=== PATIENT | female | born 1995 | race Caucasian/White ===

== ENCOUNTER 2022-09-16 08:38 | Outpatient (REF) | payer OTHER, SELFPAY ==
[2022-09-16 11:14] LABS: MANUAL DIFF FLAG NO
[2022-09-16 11:25] LABS: Basophils Absolute Auto 0.1 X10*3/uL (0.0-0.2); Basophils Percent Auto 0.6 % (0-2); Eosinophils Absolute Auto 0.1 X10*3/uL (0.0-0.4); Eosinophils Percent Auto 1.2 % (0-4); Hematocrit 40.3 % (37.0-47.0); Hemoglobin 12.9 g/dl (12.0-16.0); Imm Gran Abs Auto 0.02 X10*3/uL (0.00-0.03); Imm Gran Pct Auto 0.3 % (0.0-0.4); Lymphocytes Absolute Auto 3.1 X10*3/uL (1.2-4.9); Lymphocytes Percent Auto 40.1 % (20-40); Mean Corpuscular Hemoglobin 25.8 pg (27.0-33.0); Mean Corpuscular Volume 80.6 fL (80.0-98.0); Mean Platelet Volume 12.1 fL (9.4-12.3); Monocytes Absolute Auto 0.5 X10*3/uL (0.1-1.2); Monocytes Percent Auto 6.7 % (2-11); Neutrophils Percent Auto 51.1 % (45-73); Platelet Count 375 X10*3/uL (160-400); Red Cell Distribution Width 14.1 % (11.0-16.0); White Blood Count 7.8 X10*3/uL (4.8-10.8)
[2022-09-16 12:08] LABS: Alanine Aminotransferase 26 U/L (0-31); Albumin Level 4.1 g/dL (3.5-5.0); Alkaline Phosphatase 83 U/L (39-117); Anion Gap 12 (12-20); Aspartate Amino Transferase 21 U/L (5-31); Bilirubin Total 0.8 mg/dL (0.0-1.0); Blood Urea Nitrogen 15 mg/dL (9-16); Calcium 9.4 mg/dL (8.4-10.2); Carbon Dioxide 25 mmol/L (22-29); Chloride 107 mmol/L (96-108); Cholesterol 174 mg/dL; Estimated Glomerular Filt Rate > 60; Glucose Fasting 84 mg/dL (60-99); HDL Cholesterol 36 mg/dL; LDL Cholesterol Calculated 120 mg/dl; Potassium 4.2 mmol/L (3.3-5.1); Sodium 140 mmol/L (135-145); TSH reflex Free T4 2.33 uIU/mL (0.32-4.0); Total Protein 7.1 g/dL (6.5-8.0); Triglycerides 92 mg/dL
[2022-09-17 05:43] LABS: Syphilis Screen Nonreactive (Nonreactive)
[2022-09-17 06:49] LABS: HBS Num1 0.33 mIU/mL (0-7.99); HBc Num1 0.17 S/CO (0.00-0.79); HBsAGNum1 0.33 S/CO (0.00-0.99); HIV AB/AG Nonreactive (Nonreactive); HIV Num 1 0.07 S/CO (0.00-0.99); Hepatitis B Core Antibody Nonreactive (Nonreactive); Hepatitis B Surface Antigen Negative (Negative); ~HepC Num1 0.08 S/CO (0.00-0.79); ~Hepatitis B Surface Antibody NONREACTIVE (Nonreactive); ~Hepatitis C Antibody Nonreactive (Nonreactive)
== END 2022-09-16 08:39 | disposition home or self-care (01) ==
LOC: HO.WFDLDS 08:38
PROVIDERS: Visit Provider Family Medicine
DX: Z00.00 Encounter for general adult medical examination without abnormal findings (principal); Z11.4 Encounter for screening for human immunodeficiency virus [HIV]; Z20.2 Contact with and (suspected) exposure to infections with a predominantly sexual mode of transmission
CPT/HCPCS: 36415; 80053; 80061; 84443; 85025; 86704; 86706; 86780; 86803; 87340; 87389

== ENCOUNTER 2022-12-07 10:31 | Outpatient (REF) | payer OTHER, SELFPAY ==
[2022-12-08 09:06] LABS: CT PCR NOT DETECTED (Not Detect.); NG PCR NOT DETECTED (Not Detect.)
[2022-12-08 10:10] LABS: BV Int Neg Control Negative (Negative)
[2022-12-08 10:11] LABS: BV Int Pos Control Positive (Positive)
== END 2022-12-07 10:32 | disposition home or self-care (01) ==
LOC: HO.LNP 10:31
PROVIDERS: PCP Family Medicine; Visit Provider Advanced Practice Midwife
DX: Z01.419 Encounter for gynecological examination (general) (routine) without abnormal findings (principal); Z20.2 Contact with and (suspected) exposure to infections with a predominantly sexual mode of transmission
CPT/HCPCS: 0353U; 87480; 87510; 87660; 88142

== ENCOUNTER 2023-03-04 10:17 | Outpatient (AMB) | payer OTHER, SELFPAY ==
--- NOTE | 2023-03-04 10:23 | MHC.OFFVIS ---
Intake Vital Signs 03/04/23 10:28 Height 5 ft 5 in Weight 212 lb BMI 35.3 BP 120/60 Intake Visit Reasons: 3 month follow up BC/DO NO RS Dedicated Driver Required: No Information Interpreted: non-clinical & clinical Design Drafter Chief: Design Drafter Chief Present (Aidyn) Allergies No Known Allergies Allergy (Verified 03/04/23 10:25) Medication List - Last Reconciled 03/04/23 by Stacey Mackey CNM cetirizine (Zyrtec) 10 mg PO DAILY PRN cholecalciferol (vitamin D3) 25 mcg PO DAILY desog-e.estradiol/e.estradiol 0.15-0.02 mgx21 /0.01 mg x 5 1 tab PO DAILY omega 7-inv-dlp-fish oil 60-90-500 mg (Fish Oil) 1 cap PO DAILY Is last menstrual period known: Yes Last menstrual period: 02/21/23 Post menopausal: No Patient : No HPI 3 month follow up BC/DO NO RS HPI Details Patient is here to follow-up on her control pills she really likes them the 1st month she noticed emotional changes and she was sort of all over the place but she feels like everything sort of leveled out her periods are still about 5 days with the 1st 2 being heavy so they have not changed much but she overall really likes the pill and is doing well on it. She wants to continue on it. 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 Her health is good and she has not having any other health issues. [facility] Social History Patient Tobacco Use Status: Former Tobacco user (social) Female Reproductive History Menstrual Age of Menarche: 13 Duration of menses: 3-5 days Date of last menstrual period: 02/21/23 control method: pills Total pregnancies: 0 Number of Living Children: 0 Physical Exam Vital Signs: Last Vital Signs BP 120/60 03/04/23 10:28 BMI result Body Mass Index 35.3 Assessment & Plan Assessment & Plan (1) control counseling: Code(s): Z30.09 - Encounter for other general counseling and advice on contraception (2) Screening for malignant neoplasm of cervix: Comment: 12/07/2022 Pap = negative. Code(s): Z12.4 - Encounter for screening for malignant neoplasm of cervix (3) Counseling for control, oral contraceptives: Code(s): Z30. - Encounter for other general counseling and advice on contraception Plan Reviewed her use of the control pills and their effects on her cycles and overall she is fairly happy with the pills. Reviewed things to watch for in terms of dangerous or negative side effects and what would need medical attention. Also discussed overall health and exercise and making sure she moves throughout the day and avoids prolonged sitting, to prevent blood stasis. Refill sent for 1 year supply 3 months at a time and we can see her next year for her annual. Medications: Refilled desog-e.estradiol/e.estradiol 0.15-0.02 mgx21 /0.01 mg x 5 1 tab PO DAILY 84 tabs 4RF Coding Level of Care Code Est Pt Level 3 (03509) Diagnoses control counseling Z Screening for malignant neoplasm of cervix Z12.4 Counseling for control, oral contraceptives Z
[2023-03-04 10:28] VITALS: BP 120/60; BMI 35.3
== END 2023-03-04 10:46 | disposition home or self-care (01) ==
LOC: HO.HWS 10:17
PROVIDERS: PCP Family Medicine; Visit Provider Advanced Practice Midwife
DX: Z30.09 Encounter for other general counseling and advice on contraception (principal)
CPT/HCPCS: 99213

== ENCOUNTER → 2023-03-04 10:17 | Outpatient (BNVA) | payer OTHER, SELFPAY | PROVIDERS: PCP Family Medicine; Visit Provider Advanced Practice Midwife | DX: Z30.09 Encounter for other general counseling and advice on contraception (principal) | CPT/HCPCS: 99212 ==

== ENCOUNTER 2023-07-29 08:22 | Outpatient (AMB) | payer OTHER, SELFPAY ==
--- NOTE | 2023-07-29 08:25 | MHC.PC.OV ---
Vital Signs 07/29/23 08:31 Height 5 ft 5 in Weight 210 lb 6 oz BMI 35.0 BP 102/66 Blood Pressure Location Rt brachial Position Sitting Respiration 13 Pulse 106 H Pulse Source Pulse Oximeter Pulse Oximetry (%) 98 Oxygen Delivery Method Room Air Intake Visit Reasons: Hemmoroid issues Intake Note: patient presents with rectal bleeding when using the bathroom. Patient reports she notices blood in the toilet and on the toilet paper. Patient noticed this on Tuesday along with constipation noticed at the same time. Patient reports she was seen in urgent care on Tuesday and was given a treatment plan and suppositories. Data Control Assistant Required: No Accompanied by: Self / Same As Patient Allergies No Known Allergies Allergy (Verified 07/29/23 08:34) Tobacco use date assessed: 07/29/23 HPI Hemmoroid issues HPI Details 27 y/o female presents with complaints of rectal bleeding along with constipation. She reports bright red blood in the bowl and on the toilet paper. Pt reports she noticed this along with constipation Tuesday. Pt reports significant bleeding in bowl. She denies any pain. She does note she has had hemorrhoids before. Last menstrual period 2 weeks ago per pt. [facility] Social History Housing: House Patient Tobacco Use Status: Former Tobacco user (social) e-Cigarette/Vaping Use: Never Used service: No Current occupational status: employed Current occupational exposures/hazards: Yes Cognitive needs: No Hearing needs: No Vision needs: No Female Reproductive History Menstrual Age of Menarche: 13 Questionnaire Thrive Questionnaire Date Thrive assessed: 08/10/22 SAMUEL-7 AMB Questionnaire SAMUEL-7 Date SAMUEL - 7 assessed: 08/10/22 Source: Developed by Drs. Jules Galvin, Sabi Storm, Lamont Flores and colleagues, with an educational ger from [email or web address]. Review of Systems Const Denies chills, Denies fatigue, Denies fever(s), Denies headache(s) and Denies weakness ENT Denies dizziness and Denies headache(s) Card Denies dyspnea Resp Denies cough, Denies dyspnea, Denies wheezing and Denies other (shortness of breath) Musc Denies numbness and Denies tingling Neuro Denies dizziness, Denies headache(s), Denies numbness, Denies tingling and Denies weakness Psych Denies anxiety and Denies depression Endo Denies fatigue Aller/Immun Denies wheezing Physical exam (Primary Care) Vital Signs: Last Vital Signs Pulse 106 H 07/29/23 08:31 Resp 13 07/29/23 08:31 BP 102/66 07/29/23 08:31 Pulse Ox 98 07/29/23 08:31 Oxygen Delivery Method Room Air 07/29/23 08:31 BMI result Body Mass Index 35.0 Tobacco/Smoking Status: Tobacco use Status Tobacco use date assessed 07/29/23 07/29/23 08:35 Patient Tobacco Use Status Former Tobacco user (social) 07/29/23 08:35 e-Cigarette/Vaping Use Never Used 07/29/23 08:35 Thrive Assessment: Date of Thrive Assessment Date Thrive assessed 08/10/22 07/29/23 08:35 Const General: well developed; No acute distress Nutritional Appearance: well nourished Orientation/consciousness: patient oriented x3 HENMT Head: Yes normocephalic and Yes atraumatic Eyes General: appearance normal, both eyes and all related structures Pupils: Equal, round and reactive pupils present EOM: EOMs intact bilaterally Resp Effort & Inspection: normal respiratory effort Auscultation: clear to auscultation bilaterally Cardio Rate: regular rate Rhythm: regular rhythm Heart sounds: S1 normal heart sound present, S2 normal heart sound present, no gallops, no murmurs and no rubs GI Inspection: Yes obesity Neuro General: patient oriented x3 and gait normal Cranial nerves: Yes Equal, round and reactive pupils present Psych Affect: normal affect Assessment and Plan Assessment & Plan (1) Rectal bleeding: Code(s): K62.5 - Hemorrhage of anus and rectum Plan: Rectal?bleeding?and?history?of?internal?hemorrhoids. Encouraged?increased?hydration Will?give?her?a?stool?softener She?can?use?a?steroid?rectal?cream Keep?stools?soft She?had?significant?bleeding?in?bowl;?check?CBC Referred?to?surgery?at?patient?request.??She?can?cancel?this?if?hemorrhoids?resolve (2) Constipation: Code(s): K59.00 - Constipation, unspecified Plan: As?above,?keep?stools?soft Orders: Orders Complete Blood Count Auto Diff Today K62.5 - Hemorrhage of anus and rectum, Z00.00 - Encounter for general adult medical examination without abnormal findings Basic Metabolic Panel Today K62.5 - Hemorrhage of anus and rectum, Z00.00 - Encounter for general adult medical examination without abnormal findings Referrals General Surgery Referral K62.5 - Hemorrhage of anus and rectum, K64.9 - Unspecified hemorrhoids Medications: New lidocaine HCl-hydrocortison ac 3-0.5 % 1 appl [place] BID 4 days 1 ea 0RF docusate sodium 100 mg PO BID 10 days 20 caps 1RF Coding Level of Care Code Est Pt Level 3 (86813) Diagnoses Rectal bleeding K62.5 Constipation K59.00
[2023-07-29 08:31] VITALS: BP 102/66; PULSE 106; RESP 13; O2SAT 98; BMI 35.0
== END 2023-07-29 09:03 | disposition home or self-care (01) ==
PROVIDERS: PCP Family Medicine; Visit Provider Family Medicine
DX: K62.5 Hemorrhage of anus and rectum (principal); K59.00 Constipation, unspecified
CPT/HCPCS: 99213

== ENCOUNTER 2023-07-29 09:13 | Outpatient (REF) | payer OTHER, SELFPAY | END 2023-07-29 09:14 | disposition home or self-care (01) | LOC: HO.WFDLDS 09:13 | PROVIDERS: Visit Provider Family Medicine | DX: Z00.00 Encounter for general adult medical examination without abnormal findings (principal); K62.5 Hemorrhage of anus and rectum | CPT/HCPCS: 36415; 80048; 85025 ==

== ENCOUNTER 2023-08-04 08:50 | Outpatient (AMB) | payer OTHER, SELFPAY ==
--- NOTE | 2023-08-04 08:57 | A.OFFVIS_ITS ---
Intake Vital Signs 08/04/23 08:59 Height 5 ft 5 in Weight 215 lb BMI 35.8 BP 132/60 Blood Pressure Location Rt brachial Position Sitting Pulse 80 Intake Visit Reasons: bleeding hemorrhoids Intake Note: This patient presents for an assessment for hemorrhoids. Patient c/o; reports occasional rectal bleeding, straining with bowel movements reports occasional constipation but Docusate effective. Fast Food Crew Lead Required: No Swatch Paster: Swatch Paster Present (Melody-Moustapha) Accompanied by: Self / Same As Patient Allergies No Known Allergies Allergy (Verified 08/04/23 09:03) Medication List - Last Reconciled 08/04/23 by Francis Rosario MD cholecalciferol (vitamin D3) 25 mcg PO DAILY desog-e.estradiol/e.estradiol 0.15-0.02 mgx21 /0.01 mg x 5 1 tab PO DAILY docusate sodium 100 mg PO BID 10 days lidocaine HCl-hydrocortison ac 3-0.5 % 1 appl [place] BID 4 days omega 8-knn-npi-fish oil 60-90-500 mg (Fish Oil) 1 cap PO DAILY HPI bleeding hemorrhoids HPI Details 27-year-old female referred for bleeding hemorrhoids. She says that she straining in the bathroom because of constipation about almost 2 weeks ago. She eventually had bowel movements and started to see some blood on the toilet bowl She says she had been constipated for a while. She says that for the past 4 days, she feels that her constipation has improved significantly and has softer stools. However, she says she notices small amounts of blood on wiping so she wanted to be seen. She denies any pain with bowel movements. She denies any swelling. She has never been before and has never had any anal surgery. [facility] Medical History Bleeding hemorrhoids Surgical History History of wisdom tooth extraction Social History Housing: House Patient Tobacco Use Status: Former Tobacco user (social) e-Cigarette/Vaping Use: Never Used service: No Current occupational status: employed Current occupational exposures/hazards: Yes Cognitive needs: No Hearing needs: No Vision needs: No Female Reproductive History Menstrual Age of Menarche: 13 Review of Systems Const Denies chills and Denies fever(s) Card Denies chest pain, Denies dyspnea and Denies dyspnea on exertion Resp Denies cough, Denies dyspnea and Denies dyspnea on exertion GI Reports hematochezia, Denies change in bowel habits and Reports constipation Denies hematuria Musc Denies back pain and Denies limited range of motion Neuro Denies focal weakness and Denies convulsions Psych Denies depression and Denies mood swings Physical Exam Const General: comfortable and no acute distress Orientation/consciousness: patient oriented x3 Neck Neck: Yes no lymphadenopathy Resp Auscultation: clear to auscultation bilaterally Cardio Rhythm: regular rhythm GI Other: Rectal exam shows small external hemorrhoids without thrombosis or any bleeding Palpation (GI): Soft to palpation, nontender and no guarding Neuro General: patient oriented x3 Office Procedures Anoscopy She was placed in santana-knife position. The anoscope was gently inserted. A full examination of the entire anal canal was done. She had small internal hemorrhoids. There was no bleeding or any lesions. There was no induration on digital exam. She had good sphincter tone. She had very small external hemorrhoids as well. [id number] Assessment & Plan Assessment & Plan (1) Bleeding hemorrhoids: Code(s): K64.9 - Unspecified hemorrhoids Plan: She describes passage of bright blood per rectum on wiping after bowel movements. Examination does show small internal and external hemorrhoids. Her bleeding is likely outlet in origin from her hemorrhoids. However, I told her that she has small hemorrhoids and not recommend any surgical intervention at this time. However, it appears that these hemorrhoids or bleeding because of her constipation. I am going to prescribe her a prescription for Metamucil as w ell as on Colace I told her that if she continues to have significant bleeding, she is welcome to follow up with me in the office. She is comfortable with the plan. Coding Level of Care Code New Pt Level 3 (76252) Diagnoses Bleeding hemorrhoids K64.9 CPT Codes Details - CPT: 59562-[id number] ([id number])
[2023-08-04 08:59] VITALS: BP 132/60; PULSE 80; BMI 35.8
== END 2023-08-04 09:25 | disposition home or self-care (01) ==
PROVIDERS: PCP Family Medicine; Referring Provider Family Medicine; Visit Provider Surgery
DX: K64.9 Unspecified hemorrhoids (principal)
CPT/HCPCS: 46600; 99203

== ENCOUNTER → 2023-08-04 08:50 | Outpatient (BNVA) | payer OTHER, SELFPAY | PROVIDERS: PCP Family Medicine; Visit Provider Surgery | DX: K64.9 Unspecified hemorrhoids (principal) | CPT/HCPCS: 46600; 99202 ==

== ENCOUNTER 2023-08-18 08:37 | Outpatient (AMB) | payer OTHER, SELFPAY ==
--- NOTE | 2023-08-18 08:15 | MHC.PC.OV ---
Vital Signs 08/18/23 08:45 Height 5 ft 5 in Weight 216 lb 2 oz BMI 36.0 BP 110/68 Blood Pressure Location Rt brachial Position Sitting Pulse 64 Pulse Source Pulse Oximeter Pulse Oximetry (%) 98 Oxygen Delivery Method Room Air Intake Visit Reasons: Therapist referral and mental health concerns Intake Note: Patient is here for therapist referral and mental health concerns. Allergies No Known Allergies Allergy (Verified 08/18/23 08:49) Medication List - Last Reconciled 08/18/23 by Palmer Yan MD cholecalciferol (vitamin D3) 25 mcg PO DAILY desog-e.estradiol/e.estradiol 0.15-0.02 mgx21 /0.01 mg x 5 1 tab PO DAILY docusate sodium 100 mg PO BID 10 days lidocaine HCl-hydrocortison ac 3-0.5 % 1 appl [place] BID 4 days omega 3-qke-lwt-fish oil 60-90-500 mg (Fish Oil) 1 cap PO DAILY Tobacco use date assessed: 08/18/23 Dental Screening Dental Screen Date: 08/18/23 Did you have a dental visit in the last 12 months?: Yes Did you have a dental problem in the last 6 months where you did not have access to dental care?: No Was dental information given to patient?: Patient has dentist HPI Therapist referral and mental health concerns HPI Details Patient?notes?anxiety?and?depression?with?increased?stressors. Denies?SI/HI She?says?she?has?had?a?therapist?in?the?distant?past?which?was?helpful. Has?never?tried?medication PFSH Medical History Bleeding hemorrhoids Surgical History History of wisdom tooth extraction Social History Housing: House Patient Tobacco Use Status: Former Tobacco user (social) e-Cigarette/Vaping Use: Never Used service: No Current occupational status: employed Current occupational exposures/hazards: Yes Cognitive needs: No Hearing needs: No Vision needs: No Female Reproductive History Menstrual Age of Menarche: 13 Questionnaire PHQ-9 Over the last 2 weeks, how often have you been bothered by any of the following problems? 1. Little interest or pleasure in doing things: several days 2. Feeling down, depressed, or hopeless: not at all 3. Trouble falling or staying asleep, or sleeping too much: several days 4. Feeling tired or having little energy: not at all 5. Poor appetite or overeating: several days 6. Feeling bad about yourself - or that you are a failure or have let yourself or your family down: several days 7. Trouble concentrating on things, such as reading the newspaper or watching television: nearly every day 8. Moving or speaking so slowly that other people could have noticed. Or the opposite - being so fidgety or restless that you have been moving around a lot more than usual: not at all 9. Thoughts that you would be better off or of hurting yourself in some way: not at all Total score: 7 Depression Screening Interpretation: Positive (Referred?for?therapy) Depression Screening Done: Yes 30185 - PHQ-9 Billing: Yes Source: Developed by Drs. Jules Galvin, Sabi Storm, Lamont Flores and colleagues, with an educational ger from [employer]. Thrive Questionnaire Date Thrive assessed: 08/18/23 I am a: Patient What is your living situation today?: I have a steady place to live Within the past 12 months, did the food you bought not last and you didn't have the money to get more?: Never true Within the past 12 months, did you worry whether your food would run out before you got money to buy more?: Never true Do you have trouble paying for medicines?: No Do you have trouble getting transportation to medical appointments?: No Do you have trouble paying your heating and electricity bill?: No Do you have trouble taking care of your child, family member or friend?: No Do you have trouble with day-to-day activities such as bathing, preparing meals, shopping, managing finances, etc.?: No Are you currently unemployed and looking for a job?: No Are you interested in more education?: No THRIVE Score: 0 AUDIT C Alcohol Use Questionnaire (AUDIT-C) 1. How often do you have a drink containing alcohol?: 2-3 times a week (once a week) 2. How many drinks containing alcohol do you have on a typical day when you are drinking?: 1 or 2 3. How often do you have six or more drinks on one occasion?: Never Total Score: 3 SAMUEL-7 AMB Questionnaire SAMUEL-7 Date SAMUEL - 7 assessed: 08/18/23 Feeling nervous, anxious, or on edge: 1 = Several days Not being able to stop or control worryin = Several days Worrying too much about different things: 1 = Several days Trouble relaxin = Several days Being so restless that it is hard to sit still: 0 = Not at all Becoming easily annoyed or irritable: 1 = Several days Feeling afraid as if something awful might happen: 1 = Several days Total SAMUEL-7 score (0-4 normal; 5-9 mild; 10-14 moderate; 15-21 severe): 6 Source: Developed by Drs. Jules Galvin, Sabi Storm, Lamont Flores and colleagues, with an educational ger from [employer]. SAMUEL-7 Assessment Billing SAMUEL-7 Assessment Tool: SAMUEL-7 Assessment 53902 Review of Systems Const Denies chills, Denies fatigue, Denies fever(s), Denies headache(s) and Denies weakness ENT Denies dizziness and Denies headache(s) Card Denies chest pain, Denies lightheadedness, Denies dyspnea and Denies other (Palpitations) Resp Denies cough, Denies dyspnea, Denies wheezing and Denies other ( shortness of breath) Musc Denies numbness and Denies tingling Neuro Denies dizziness, Denies headache(s), Denies numbness, Denies tingling, Denies paresthesias and Denies weakness Psych Reports anxiety and Reports depression (Mild) Endo Denies fatigue Aller/Immun Denies wheezing Physical exam (Primary Care) Vital Signs: Last Vital Signs Pulse 64 08/18/23 08:45 BP 110/68 08/18/23 08:45 Pulse Ox 98 08/18/23 08:45 Oxygen Delivery Method Room Air 08/18/23 08:45 BMI result Body Mass Index 36.0 Tobacco/Smoking Status: Tobacco use Status Tobacco use date assessed 08/18/23 08/18/23 08:56 Patient Tobacco Use Status Former Tobacco user (social) 08/18/23 08:16 e-Cigarette/Vaping Use Never Used 08/18/23 08:16 PHQ-9: PHQ-9 Score PHQ-9: Total score 7 08/18/23 08:56 Depression Screening Interpretation: Positive (Referred?for?therapy) Thrive Assessment: Date of Thrive Assessment Date Thrive assessed 08/18/23 08/18/23 08:56 Const General: no acute distress and well developed Nutritional Appearance: well nourished Orientation/consciousness: patient oriented x3 HENMT Head: Yes normocephalic and Yes atraumatic Eyes General: appearance normal, both eyes and all related structures Pupils: Equal, round and reactive pupils present EOM: EOMs intact bilaterally Resp Effort & Inspection: normal respiratory effort Auscultation: clear to auscultation bilaterally Cardio Rate: regular rate Rhythm: regular rhythm Heart sounds: S1 normal heart sound present, S2 normal heart sound present, no gallops, no murmurs and no rubs Neuro General: patient oriented x3 and gait normal Cranial nerves: Yes Equal, round and reactive pupils present Psych Affect: Anxious affect present (Mildly?anxious) Assessment and Plan Assessment & Plan (1) Anxiety and depression: Code(s): F41.9 - Anxiety disorder, unspecified; F32.A - Depression, unspecified Plan: Will?ask?the?nurse?navigator?to?connect?her?with?a?therapist We?also?discussed?pharmacotherapy?and?in?particular?SSRI?class?medications?and?also?bupropion. Bupropion?might?be?a?good?choice?for?her?as?she?has?noted?in?the?past?that?she?has?some?difficulty?concentrating?but?does?not?carry?a?diagnosis?of?ADHD?at?this?time.??She?also?had?some?concerns?regarding?bipolar?2?disorder. Bupropion?also?does?not?cause?weight?gain. She?would?like?to?think?about?this?medication Orders: Referrals Nurse Navigator Referral F32.A - Depression, unspecified, F41.9 - Anxiety disorder, unspecified Coding Level of Care Code Est Pt Level 3 (53148) Diagnoses Anxiety and depression F41.9; F32.A Additional Codes SAMUEL-7 Assessment Billing - SAMUEL-7 Assessment Tool: SAMUEL-7 Assessment 62104 ([id number])
[2023-08-18 08:45] VITALS: BP 110/68; PULSE 64; O2SAT 98; BMI 36.0
== END 2023-08-18 09:51 | disposition home or self-care (01) ==
PROVIDERS: PCP Family Medicine; Visit Provider Family Medicine
DX: F41.9 Anxiety disorder, unspecified (principal); F32.A Depression, unspecified
CPT/HCPCS: 96127; 99213

== ENCOUNTER 2024-02-08 09:13 | Outpatient (REF) | payer OTHER, SELFPAY ==
[2024-02-08 12:13] LABS: Appearance Urine Clear; Color Urine Yellow; Glucose Urine UA Negative (Negative); Leukocyte Esterase Urine Small (1+) (Negative); Nitrite Urine Negative (Negative); UMIC TRIGGER UA YES; Urine Blood Negative (Negative); Urine Ketones Negative (Negative); Urine Protein Negative (Neg-Trace)
[2024-02-08 12:13] LABS: Alanine Aminotransferase 15 U/L (0-31); Alkaline Phosphatase 79 U/L (39-117); Anion Gap 12 (12-20); Aspartate Amino Transferase 16 U/L (5-31); Bilirubin Total 0.3 mg/dL (0.0-1.0); Blood Urea Nitrogen 10 mg/dL (9-16); Calcium 9.3 mg/dL (8.4-10.2); Carbon Dioxide 23 mmol/L (22-29); Chloride 106 mmol/L (96-108); Cholesterol 199 mg/dL (<200); Estimated Glomerular Filt Rate > 60; Glucose Fasting 89 mg/dL (60-99); HDL Cholesterol 44 mg/dL (>40); LDL Cholesterol Calculated 131 mg/dL (<100); Potassium 3.9 mmol/L (3.3-5.1); Sodium 137 mmol/L (135-145); Total Protein 7.5 g/dL (6.5-8.0); Triglycerides 124 mg/dL (<150)
[2024-02-08 13:20] LABS: Bacteria Urine Trace (None Seen); Hyaline Casts Urine 0-2 /LPF (0-2); RBC Urine 0-2 /HPF (0-2)
== END 2024-02-08 09:14 | disposition home or self-care (01) ==
LOC: HO.WFDLDS 09:13
PROVIDERS: Visit Provider Family Medicine
DX: Z00.00 Encounter for general adult medical examination without abnormal findings (principal)
CPT/HCPCS: 36415; 80053; 80061; 81001; 81003; 84443

== ENCOUNTER 2024-02-21 16:04 | Outpatient (AMB) | payer OTHER, SELFPAY ==
--- NOTE | 2024-02-21 16:18 | A.OFFPC_ITS ---
Vital Signs 02/21/24 16:21 Height 5 ft 5 in Weight 211 lb 4 oz BMI 35.2 BP 130/70 Blood Pressure Location Rt brachial Position Sitting Pulse 76 Pulse Source Pulse Oximeter Pulse Oximetry (%) 99 Oxygen Delivery Method Room Air Intake Visit Reasons: Extended exam with f/u labs and health maintenance Intake Note: Patient is here today for a physical and lab result. 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 Labs drawn 02/08/24. Reviewed labs with pt. Triglycerides 124. TC 199. LDL 131. HDL 44. Trace urine bacteria seen. She denies any urinary symptoms. [facility] Medical History Bleeding hemorrhoids Surgical History History of wisdom tooth extraction Family History (Updated 02/21/24 @ 16:25 by DEMETRIO Callejas) Other Substance use disorder Social History (Updated 02/21/24 @ 16:25 by DEMETRIO Callejas) Housing: House Alcohol intake: current Alcohol intake frequency: a few times a week Patient Tobacco Use Status: Former Tobacco user (social) e-Cigarette/Vaping Use: Never Used Second Hand Smoke Exposure: Yes service: No Current occupational status: employed Current occupational exposures/hazards: Yes Cognitive needs: No Hearing needs: No Vision needs: No Female Reproductive History Menstrual Age of Menarche: 13 Questionnaire Thrive Questionnaire Date Thrive assessed: 08/18/23 SAMUEL-7 AMB Questionnaire SAMUEL-7 Date SAMUEL - 7 assessed: 08/18/23 Source: Developed by Drs. Jules Galvin, Sabi Storm, Lamont Flores and colleagues, with an educational ger from [employer]. Review of Systems Const Denies chills, Denies fatigue, Denies fever(s), Denies headache(s) and Denies weakness Eyes Denies change in vision ENT Denies dizziness, Denies headache(s), Denies hearing loss, Denies nasal congestion, Denies sinus pain, Denies sinus pressure and Denies sore throat Card Denies chest pain, Denies lightheadedness, Denies dyspnea and Denies other (palpitations) Resp Denies cough, Denies dyspnea and Denies wheezing GI Denies abdominal pain, Denies melena, Denies hematochezia, Denies change in bowel habits, Denies dyspepsia and Denies nausea Denies hematuria and Denies dysuria Musc Denies abnormal gait, Denies myalgias, Denies arthralgias, Denies numbness and Denies tingling Skin/Breast Denies rash, Denies unusual bruising and Denies wounds Neuro Denies abnormal gait, Denies dizziness, Denies headache(s), Denies memory loss, Denies numbness, Denies Sensory deficit (Neuro), Denies tingling and Denies weakness Psych Denies anxiety, Denies depression and Denies memory loss Endo Denies cold intolerance, Denies fatigue, Denies heat intolerance, Denies polydipsia and Denies polyuria Fransico/Lymph Denies easy bleeding and Denies easy bruising Aller/Immun Denies wheezing Physical exam (Primary Care) Vital Signs: Last Vital Signs Pulse 76 02/21/24 16:21 BP 130/70 02/21/24 16:21 Pulse Ox 99 02/21/24 16:21 Oxygen Delivery Method Room Air 02/21/24 16:21 BMI result Body Mass Index 35.2 Tobacco/Smoking Status: Tobacco use Status Tobacco use date assessed 02/21/24 02/21/24 16:27 Patient Tobacco Use Status Former Tobacco user (social) 02/21/24 16:27 e-Cigarette/Vaping Use Never Used 02/21/24 16:27 Thrive Assessment: Date of Thrive Assessment Date Thrive assessed 08/18/23 02/21/24 16:27 Const General: no acute distress, well developed, alert and awake Nutritional Appearance: well nourished Orientation/consciousness: patient oriented x3 HENSC Head: Yes normocephalic and Yes atraumatic Ears: hearing grossly normal bilaterally and TM's normal bilaterally General nose exam: Normal external nose present and Normal nares present Mouth: Normal oral and palatal mucosa present and moist mucous membranes Teeth and gingiva: dentition normal Throat: Yes posterior oropharynx normal Eyes General: appearance normal, both eyes and all related structures Pupils: Equal, round and reactive pupils present and Pupil accommodation reflex normal EOM: EOMs intact bilaterally Neck Neck: Yes normal visual inspection, Yes no lymphadenopathy and Yes trachea midline Thyroid: Thyroid normal Carotids: no bruits Lymphatic: no lymphadenopathy noted Chest Chest palpation & inspection: normal inspection of the chest Resp Effort & Inspection: normal respiratory effort Auscultation: clear to auscultation bilaterally Cardio Rate: regular rate Rhythm: regular rhythm Heart sounds: S1 normal heart sound present, S2 normal heart sound present, no gallops, no murmurs and no rubs Bruits: no abdominal aortic bruits and no carotid bruits GI Palpation (GI): No Abdominal aortic bruit present, Soft to palpation, nontender, No hepatosplenomegaly present and No Rebound tenderness present Auscultation: normal bowel sounds General: Yes no CVA tenderness Back/Spine/Pelvis Back: no CVA tenderness Cervical Spine: cervical ROM normal and No Cervical spine tenderness Thoracic/Lumbar Spine: thoraco-lumbar ROM normal, No pain with thoraco-lumbar ROM, No thoracic spinal tenderness and No lumbar spinal tenderness Skin Lesions: no lesions Rashes: no rashes Trauma: no lacerations or abrasions Wounds: no wounds Nails: normal Neuro General: patient oriented x3 Cranial nerves: Yes Equal, round and reactive pupils present Cognition (Neuro): normal cognition Gait exam (Neuro): Normal gait present Motor exam (neuro): 5/5 motor strength present throughout Sensory Exam: No Sensory deficit (Neuro) Deep tendon reflexes (DTR's): Right patellar reflex intensity grade: 2+ and Left patellar reflex intensity grade: 2+ Extrem General: Yes normal to inspection and No edema Psych Appearance: grossly normal Affect: normal affect Attitude: cooperative Thought process: Normal thought process present Assessment and Plan Assessment & Plan (1) Adult general medical exam: Code(s): Z00.00 - Encounter for general adult medical examination without abnormal findings Plan: 28-year-old?female?presents?for?complete?physical?exam Encouraged?healthy?diet?with?active?lifestyle?and?plenty?of?exercise (2) Hypercholesterolemia: Code(s): E78.00 - Pure hypercholesterolemia, unspecified Plan: LDL?cholesterol?is?elevated Encouraged?a?diet?lower?in?saturated?fats?and?cholesterol Encouraged?exercise?and?weight?loss Can?follow-up?in?3-6?months (3) Asymptomatic bacteriuria: Code(s): R82.71 - Bacteriuria Plan: Hydrate?well (4) Screening for malignant neoplasm of cervix: Comment: 12/07/2022 Pap = negative. 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 Panel Fast Today E78.00 - Pure hypercholesterolemia, unspecified, Z00.00 - Encounter for general adult medical examination without abnormal findings Vitamin D 25-OH Total Today E55.9 - Vitamin D deficiency, unspecified Lipid Panel Today E78.00 - Pure hypercholesterolemia, unspecified, Z00.00 - Encounter for general adult medical examination without abnormal findings Coding Level of Care Code Est Pt Level 3 (22021) Est Pt Prev Care 18-39y(42996) Diagnoses Adult general medical exam Z00.00 Hypercholesterolemia E78.00 Asymptomatic bacteriuria R82.71 Screening for malignant neoplasm of cervix Z12.4 Vitamin D deficiency E55.9 Anxiety and depression F41.9; F32.A
[2024-02-21 16:21] VITALS: BP 130/70; PULSE 76; O2SAT 99; BMI 35.2
== END 2024-02-21 16:58 | disposition home or self-care (01) ==
PROVIDERS: PCP Family Medicine; Visit Provider Family Medicine
DX: Z00.00 Encounter for general adult medical examination without abnormal findings (principal); E78.00 Pure hypercholesterolemia, unspecified; R82.71 Bacteriuria; Z12.4 Encounter for screening for malignant neoplasm of cervix; E55.9 Vitamin D deficiency, unspecified; F41.9 Anxiety disorder, unspecified; F32.A Depression, unspecified
CPT/HCPCS: 99395

== ENCOUNTER 2024-03-07 12:54 | Outpatient (AMB) | payer OTHER, SELFPAY ==
--- NOTE | 2024-03-07 13:02 | A.OFFVIS_ITS ---
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 Allergies No Known Allergies Allergy (Verified 03/07/24 13:11) Medication List - Last Reconciled 03/07/24 by Stacey Mackey CNM cholecalciferol (vitamin D3) 25 mcg PO DAILY desog-e.estradiol/e.estradiol 0.15-0.02 mgx21 /0.01 mg x 5 1 tab PO DAILY omega 5-ngp-emr-fish oil 60-90-500 mg (Fish Oil) 1 cap PO DAILY Is last menstrual period known: Yes Last menstrual period: 02/22/24 HPI HPI 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 She is working on trying to lose weight and eat healthier and lower her cholesterol too. She likes being on the pills and is not having any problems with them at all. [facility] Medical History Bleeding hemorrhoids Surgical History History of wisdom tooth extraction Family History Other Substance use disorder Social History Housing: House Alcohol intake: current Alcohol intake frequency: a few times a week Patient Tobacco Use Status: Former Tobacco user (social) e-Cigarette/Vaping Use: Never Used Second Hand Smoke Exposure: Yes service: No Current occupational status: employed Current occupational exposures/hazards: Yes Cognitive needs: No Hearing needs: No Vision needs: No Female Reproductive History Menstrual Age of Menarche: 13 Duration of menses: 3-5 days Date of last menstrual period: 02/22/24 control method: pills Total pregnancies: 0 Date of last pap smear: 12/09/22 (neg.) History of abnormal pap smear: No Physical Exam Vital Signs: Last Vital Signs BP 110/68 03/07/24 13:09 BMI result Body Mass Index 34.9 Const General: healthy appearing, comfortable, no acute distress, well developed and alert Nutritional Appearance: average body habitus Orientation/consciousness: patient oriented x3 Limitations: no limitations HEENT Head: Yes normocephalic Neck Neck: Yes normal visual inspection Chest Chest palpation & inspection: normal inspection of the chest Breast/axilla inspection: normal inspection of the breasts and normal inspection of the axillae Breast/axilla palpation: normal palpation of the breasts and normal palpation of the axillae Resp Effort & Inspection: normal respiratory effort GI Inspection: Yes normal to inspection, No Abdominal wall edema and No distended Palpation (GI): Soft to palpation and nontender Other: Normal external exam normal appearing whitish discharge vagina is pink and moist cervix nulliparous pink smooth mobile nontender uterus midposition mobile nontender mild tone with Kegel instructed on doing Kegel's. General: Yes bladder normal to palpation External Female Exam: normal external appearance and normal appearance of the urethra Speculum Exam - Vagina: normal appearance of the vagina, normal palpation and normal vaginal discharge Speculum Exam - Cervix: normal appearance of the cervix, normal palpation and nontender Bimanual exam- vagina & uterus: normal bimanual exam, normal palpation, uterine size normal, bladder normal to palpation, consistency normal, normal palpation, uterine mobility normal, uterine shape normal, No Cervical tenderness present, non-tender and no cervical motion tenderness Bimanual Exam- Adnexa, other: normal adnexae, no masses, normal and No adnexal tenderness Neuro General: patient oriented x3 Results Reviewed Results Reviewed: Name: Trisha Farmer Age/Sex: 27/F Attending: Stacey Mackey CNM : 1995 Submitted by: Stacey Mackey CNM Copies to: Palmer Yan MD MR #: [id number] Status: DEP REF Collected: 12/07/22 Location: [facility] Received: 12/09/22 Interpretation Satisfactory for evaluation. Mild inflammation. Negative for intraepithelial lesion or malignancy. Clinical Information LMP: 11/23/22 Previous PAP test:Unknown date/findings Material Received ThinPrep-Cervical Copies To Palmer Yan MD [address] [place] [address]. [place], [place] [id number] Stacey Mackey [address] Bernice Ramos [place] [id number] Electronically Signed By: JOSE Welch (ASCP) 12/21/22 1230 The Pap Test is a screening procedure with the inherent possibility of both false negative and false positive results. Results should be interpreted in the context of historic and current clinical findings. Reliability of the Pap Test is enhanced by performing the test on a regular repetitive basis. Patient: Trisha Farmer Age/Sex: 27/F MR#: [id number] Page 1 of 1 Assessment & Plan Assessment & Plan (1) Counseling for control, oral contraceptives: Code(s): Z30.09 - Encounter for other general counseling and advice on contraception Category: Medical (2) Screening for malignant neoplasm of cervix: Comment: 12/07/2022 Pap = negative. Code(s): Z12.4 - Encounter for screening for malignant neoplasm of cervix Category: Medical (3) Well woman exam with routine gynecological exam: Code(s): Z01.419 - Encounter for gynecological examination (general) (routine) without abnormal findings Category: Medical (4) Obesity (BMI 30.0-34.9): Comment: is working on it and has lost some wt Code(s): E66.9 - Obesity, unspecified Category: Medical Plan -----Discussed in this visit the following: healthy balanced diet, regular and consistent exercise, getting recommended health screens, doing the best she can for her particular health concerns, kegel exercises, pap smear screening and followup recommendations, mammography screening and SBE, normal changes in cycles in her life stage--- .-----I reviewed available options for Control Methods and their associated side effect profiles. In particular, we discussed the method most of interest to her. Reviewed her use of the control pills and danger signs and what to watch for she is a nonsmoker recommend doing what ever she can not not be sedentary even with school and her work reviewed risks of blood clot formation ----reviewed her efforts to be healthier and lose weight and eat well to reduce her cholesterol. Review that this is the best time ever life to try and accomplish these changes applauded her use of the walking pad. ------offered testing for STIs but as she has no need and they were negative last year it is fine to defer her Pap smear was negative last year so she will be due for another Pap smear for 3 years from the last 1. Reviewed how to do Kegel exercises and we discussed the challenges of remembering to drink enough water during the day voiding when 1 needs to and not holding the urine and also exercising those muscles along with everything else, and discussed rationale. RTC 1 year prescription for 1 year sent of her control pills. Medications: Refilled desog-e.estradiol/e.estradiol 0.15-0.02 mgx21 /0.01 mg x 5 1 tab PO DAILY 84 tabs 4RF Coding Level of Care Code Est Pt Prev Care 18-39y(33215) Diagnoses Counseling for control, oral contraceptives Z30.09 Screening for malignant neoplasm of cervix Z12.4 Well woman exam with routine gynecological exam Z01.419 Obesity (BMI 30.0-34.9) E66.9
[2024-03-07 13:09] VITALS: BP 110/68; BMI 34.9
== END 2024-03-07 13:52 | disposition home or self-care (01) ==
LOC: HO.HWSM 12:54
PROVIDERS: PCP Family Medicine; Visit Provider Advanced Practice Midwife
DX: Z30.09 Encounter for other general counseling and advice on contraception (principal); Z12.4 Encounter for screening for malignant neoplasm of cervix; Z01.419 Encounter for gynecological examination (general) (routine) without abnormal findings; E66.9 Obesity, unspecified
CPT/HCPCS: 99395

== ENCOUNTER → 2024-03-07 12:54 | Outpatient (BNVA) | payer OTHER, SELFPAY | PROVIDERS: PCP Family Medicine; Visit Provider Advanced Practice Midwife ==

== ENCOUNTER 2024-04-09 14:18 | Outpatient (AMB) | payer OTHER, SELFPAY ==
--- NOTE | 2024-04-09 14:25 | MHC.OFFVIS ---
Vital Signs 04/09/24 14:32 Height 5 ft 5 in Weight 211 lb BMI 35.1 BP 110/66 Intake Visit Reasons: ? 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 infection: Details: Patient is here because she has been having very unusual sensation of feeling like there is air coming out of her urethra she has talked with her primary care provider and she got checked for other infections at another clinic everything turned out negative she and her fiance just got this weekend it was a mary family gathering that they held at a [employer] camp. They were so stressed about the wedding they have not had sex in the last couple of weeks. She is doing well on the pills. She has been trying to eat better and walk more and get more exercise and work on losing weight she thinks maybe she has lost 5 lb her partner lost 30 lb in this past year. She was dealing with rectal bleeding and constipation so her primary care provider recommended Metamucil to her and that is helping and she does not have that issue and more. She was gurgling things and is worried that she could have some sort of prolapse or some other anatomical abnormality. [facility] Medical History Bleeding hemorrhoids Surgical History History of wisdom tooth extraction Family History Other Substance use disorder Social History Housing: House Alcohol intake: current Alcohol intake frequency: a few times a week Patient Tobacco Use Status: Former Tobacco user (social) e-Cigarette/Vaping Use: Never Used Second Hand Smoke Exposure: Yes service: No Current occupational status: employed Current occupational exposures/hazards: Yes Cognitive needs: No Hearing needs: No Vision needs: No Female Reproductive History Menstrual Age of Menarche: 13 Duration of menses: 3-5 days Date of last menstrual period: 03/19/24 control method: pills Total pregnancies: 0 Physical Exam Vital Signs: Last Vital Signs BP 110/66 04/09/24 14:32 BMI result Body Mass Index 35.1 Other: Complete review with patient visualization of her anatomy and her normal appearing discharge consistent with OCP use her nulliparous cervix her normal clear and whitish discharge her normal vaginal delong, no uterine tenderness uterus small midposition mobile nontender no urethral abnormality palpated no rectal abnormality or mass palpated via the vagina no hard stool appreciated. Completely normal exam External Female Exam: normal external appearance and normal appearance of the urethra Speculum Exam - Vagina: normal appearance of the vagina and normal vaginal discharge Speculum Exam - Cervix: normal appearance of the cervix and Cervical os closed Bimanual exam- vagina & uterus: normal bimanual exam, uterine size normal, consistency normal, uterine mobility normal, uterine shape normal and non-tender Bimanual Exam- Adnexa, other: normal adnexae, no masses and No adnexal tenderness Assessment & Plan Assessment & Plan (1) Obesity (BMI 30.0-34.9): Comment: is working on it and has lost some wt Code(s): E66.9 - Obesity, unspecified Category: Medical (2) Rectal bleeding: Code(s): K62.5 - Hemorrhage of anus and rectum Category: Medical (3) Constipation: Code(s): K59.00 - Constipation, unspecified Category: Medical (4) Vaginal symptom: Code(s): N94.9 - Unspecified condition associated with female genital organs and menstrual cycle Category: Medical (5) Normal gynecologic examination: Code(s): Z01.419 - Encounter for gynecological examination (general) (routine) without abnormal findings Category: Medical Plan Discussed all the possibilities including passage of rectal gas being redirected upwards along external vulva. She will be starting therapy for anxiety. Discussed the most likely her symptoms do not describe anything pathologic suggested that she continue with the Metamucil to avoid there being a problem with that. She is doing well on the pills discussed her wedding discussed efforts at weight loss and exercise and becoming more active and resolved do the and how that will pay dividends for her and her anxiety as well Coding Level of Care Code Est Pt Level 3 (10223) Diagnoses Obesity (BMI 30.0-34.9) E66.9 Rectal bleeding K62.5 Constipation K59.00 Vaginal symptom N94.9 Normal gynecologic examination Z01.419
[2024-04-09 14:32] VITALS: BP 110/66; BMI 35.1
== END 2024-04-09 15:34 | disposition home or self-care (01) ==
PROVIDERS: PCP Family Medicine; Visit Provider Advanced Practice Midwife
DX: E66.9 Obesity, unspecified (principal); K62.5 Hemorrhage of anus and rectum; K59.00 Constipation, unspecified; N94.9 Unspecified condition associated with female genital organs and menstrual cycle; Z01.419 Encounter for gynecological examination (general) (routine) without abnormal findings
CPT/HCPCS: 99213

== ENCOUNTER → 2024-04-09 14:18 | Outpatient (BNVA) | payer OTHER, SELFPAY | PROVIDERS: PCP Family Medicine; Visit Provider Advanced Practice Midwife | DX: Z01.419 Encounter for gynecological examination (general) (routine) without abnormal findings (principal); N94.9 Unspecified condition associated with female genital organs and menstrual cycle; K59.00 Constipation, unspecified; K62.5 Hemorrhage of anus and rectum; E66.9 Obesity, unspecified; Z68.35 Body mass index [BMI] 35.0-35.9, adult | CPT/HCPCS: 99212 ==

== ENCOUNTER 2024-05-29 08:19 | Outpatient (REF) | payer OTHER, SELFPAY ==
[2024-05-29 11:57] LABS: Alanine Aminotransferase 20 U/L (0-31); Albumin Level 3.9 g/dL (3.5-5.0); Alkaline Phosphatase 75 U/L (39-117); Anion Gap 14 (12-20); Aspartate Amino Transferase 24 U/L (5-31); Bilirubin Total 0.3 mg/dL (0.0-1.0); Blood Urea Nitrogen 12 mg/dL (9-16); Calcium 9.7 mg/dL (8.4-10.2); Carbon Dioxide 22 mmol/L (22-29); Chloride 107 mmol/L (96-108); Cholesterol 191 mg/dL (<200); Estimated Glomerular Filt Rate > 60; Glucose Fasting 87 mg/dL (60-99); HDL Cholesterol 47 mg/dL (>40); LDL Cholesterol Calculated 115 mg/dL (<100); Potassium 3.8 mmol/L (3.3-5.1); Sodium 139 mmol/L (135-145); Total Protein 7.5 g/dL (6.5-8.0); Triglycerides 145 mg/dL (<150)
[2024-05-29 12:16] LABS: Vitamin D 25-OH Total 62.3 ng/mL (>30)
== END 2024-05-29 08:20 | disposition home or self-care (01) ==
LOC: HO.WFDLDS 08:19
PROVIDERS: Visit Provider Family Medicine
DX: Z00.00 Encounter for general adult medical examination without abnormal findings (principal); E55.9 Vitamin D deficiency, unspecified; E78.00 Pure hypercholesterolemia, unspecified
CPT/HCPCS: 36415; 80053; 80061; 82306

== ENCOUNTER 2024-06-07 14:16 | Outpatient (AMB) | payer OTHER, SELFPAY ==
--- NOTE | 2024-06-07 15:21 | A.OFFPC_ITS ---
Vital Signs 06/07/24 15:25 Height 5 ft 5 in Weight 212 lb BMI 35.3 BP 108/63 Blood Pressure Location Rt brachial Position Sitting Respiration 16 Pulse 84 Pulse Source Pulse Oximeter Temp 97.9 F Temp Source Temporal Artery Scan Pulse Oximetry (%) 99 Oxygen Delivery Method Room Air Intake Visit Reasons: f/u hypercholesterolemia, vitamin D deficiency Intake Note: f/u for labs and would like a referral for tharapy Allergies No Known Allergies Allergy (Verified 06/07/24 15:24) Medication List - Last Reconciled 06/07/24 by Palmer Yan MD cholecalciferol (vitamin D3) 25 mcg PO DAILY desog-e.estradiol/e.estradiol 0.15-0.02 mgx21 /0.01 mg x 5 1 tab PO DAILY omega 7-apk-pux-fish oil 60-90-500 mg (Fish Oil) 1 cap PO DAILY Tobacco use date assessed: 02/21/24 Dental Screening Dental Screen Date: 08/18/23 HPI f/u hypercholesterolemia, vitamin D deficiency HPI Details 28 y/o female presents to f/u hyperchole sterolemia, vitamin D deficiency. Labs drawn 05/29/24. Reviewed labs with pt. Triglycerides 145. TC 191. LDL 115, improved from 131. HDL 47. Vitamin D 62.3 ng/mL. PHQ-9 3, SAMUEL-7 3 today. She is requesting a referral to a therapist. Reports a lump in the back of her neck. [facility] Medical History Bleeding hemorrhoids Surgical History History of wisdom tooth extraction Family History Other Substance use disorder Social History Housing: House Alcohol intake: current Alcohol intake frequency: a few times a week Patient Tobacco Use Status: Former Tobacco user (social) e-Cigarette/Vaping Use: Never Used Second Hand Smoke Exposure: Yes service: No Current occupational status: employed Current occupational exposures/hazards: Yes Cognitive needs: No Hearing needs: No Vision needs: No Female Reproductive History Menstrual Age of Menarche: 13 Questionnaire PHQ-9 Over the last 2 weeks, how often have you been bothered by any of the following problems? 1. Little interest or pleasure in doing things: not at all 2. Feeling down, depressed, or hopeless: several days 3. Trouble falling or staying asleep, or sleeping too much: not at all 4. Feeling tired or having little energy: not at all 5. Poor appetite or overeating: not at all 6. Feeling bad about yourself - or that you are a failure or have let yourself or your family down: several days 7. Trouble concentrating on things, such as reading the newspaper or watching television: several days 8. Moving or speaking so slowly that other people could have noticed. Or the opposite - being so fidgety or restless that you have been moving around a lot m ore than usual: not at all 9. Thoughts that you would be better off or of hurting yourself in some way: not at all Total score: 3 Source: Developed by Drs. Jules Galvin, Sabi Storm, Lamont Flores and colleagues, with an educational ger from [employer]. Thrive Questionnaire Date Thrive assessed: 05/31/24 I am a: Patient What is your living situation today?: I have a steady place to live Within the past 12 months, did the food you bought not last and you didn't have the money to get more?: Never true Within the past 12 months, did you worry whether your food would run out before you got money to buy more?: Never true Do you have trouble paying for medicines?: No Do you have trouble getting transportation to medical appointments?: No Do you have trouble paying your heating and electricity bill?: No Do you have trouble taking care of your child, family member or friend?: No Do you have trouble with day-to-day activities such as bathing, preparing meals, shopping, managing finances, etc.?: No Are you currently unemployed and looking for a job?: No Are you interested in more education?: No Please select the resources that you would like help with: None Currently or been in a relationship where the following occur: No concerns reported THRIVE Score: 0 AUDIT C Alcohol Use Questionnaire (AUDIT-C) 1. How often do you have a drink containing alcohol?: 2-3 times a week 2. How many drinks containing alcohol do you have on a typical day when you are drinking?: 1 or 2 3. How often do you have six or more drinks on one occasion?: Less than monthly Total Score: 4 SAMUEL-7 AMB Questionnaire SAMUEL-7 Date SAMUEL - 7 assessed: 08/18/23 Feeling nervous, anxious, or on edge: 1 = Several days Not being able to stop or control worryin = Several days Worrying too much about different things: 1 = Several days Trouble relaxin = Not at all Being so restless that it is hard to sit still: 0 = Not at all Becoming easily annoyed or irritable: 0 = Not at all Feeling afraid as if something awful might happen: 0 = Not at all Total SAMUEL-7 score (0-4 normal; 5-9 mild; 10-14 moderate; 15-21 severe): 3 Source: Developed by Drs. Jules Galvin, Sabi Storm, Lamont Flores and colleagues, with an educational ger from [employer]. Review of Systems Const Denies chills, Denies fatigue, Denies fever(s), Denies headache(s) and Denies weakness ENT Denies dizziness and Denies headache(s) Card Denies dyspnea Resp Denies cough, Denies dyspnea, Denies wheezing and Denies other (shortness of breath) Musc Denies numbness and Denies tingling Neuro Denies dizziness, Denies headache(s), Denies numbness, Denies tingling and Denies weakness Psych Denies anxiety and Denies depression Endo Denies fatigue Aller/Immun Denies wheezing Physical exam (Primary Care) Vital Signs: Last Vital Signs Temp 97.9 F 06/07/24 15:25 Pulse 84 06/07/24 15:25 Resp 16 06/07/24 15:25 BP 108/63 06/07/24 15:25 Pulse Ox 99 06/07/24 15:25 Oxygen Delivery Method Room Air 06/07/24 15:25 BMI result Body Mass Index 35.3 Tobacco/Smoking Status: Tobacco use Status Tobacco use date assessed 02/21/24 06/07/24 15:21 Patient Tobacco Use Status Former Tobacco user (social) 06/07/24 15:21 e-Cigarette/Vaping Use Never Used 06/07/24 15:21 PHQ-9: PHQ-9 Score PHQ-9: Total score 3 06/07/24 15:21 Thrive Assessment: Date of Thrive Assessment Date Thrive assessed 05/31/24 06/07/24 15:21 Currently or been in a relationship where the following occur: No concerns reported Const General: well developed; No acute distress Nutritional Appearance: well nourished Orientation/consciousness: patient oriented x3 HENMT Head: Yes normocephalic and Yes atraumatic Eyes General: appearance normal, both eyes and all related structures Pupils: Equal, round and reactive pupils present EOM: EOMs intact bilaterally Resp Effort & Inspection: normal respiratory effort Neuro General: patient oriented x3 and gait normal Cranial nerves: Yes Equal, round and reactive pupils present Psych Affect: normal affect Coding Level of Care Code Est Pt Level 4 (72250) Diagnoses Hypercholesterolemia E78.00 Vitamin D deficiency E55.9 Anxiety and depression F41.9; F32.A Lump on neck R22.1 Assessment & Plan Assessment & Plan (1) Hypercholesterolemia: Code(s): E78.00 - Pure hypercholesterolemia, unspecified Category: Medical Plan: Cholesterol?much?improved?though?LDL?is?still?above?goal?of?less?than?100 Encouraged?ongoing?diet?low?in?saturated?fats?and?cholesterol.??Enc ouraged?weight?loss?and?exercise Will?continue?to?monitor (2) Vitamin D deficiency: Code(s): E55.9 - Vitamin D deficiency, unspecified Category: Medical Plan: Vitamin-D?level?is?within?normal?range She?is?on?a?supplement Continue?supplement (3) Anxiety and depression: Code(s): F41.9 - Anxiety disorder, unspecified; F32.A - Depression, unspecified Category: Medical Plan: Patient?had?been?refer?to?a?therapist?in?the?past. She?needs?a?new?referral?to?a?therapist?due?to?insurance Will?ask?the?nurse?navigator?to?help?connect?her?again (4) Lump on neck: Code(s): R22.1 - Localized swelling, mass and lump, neck Category: Medical Plan: She?has?a?2?cm nonfluctuant?nonmobile?lump?on?posterior?neck Likely?muscle?calcification?but?will?check?an? ultrasound?to?rule?out?other?causes Orders: Orders US soft tiss head and/or neck Today R22.1 - Localized swelling, mass and lump, neck Lipid Panel Today E78.00 - Pure hypercholesterolemia, unspecified, Z00.00 - Encounter for general adult medical examination without abnormal findings Comprehensive [place]. Panel Fast Today E78.00 - Pure hypercholesterolemia, unspecified, Z00.00 - Encounter for general adult medical examination without a bnormal findings
[2024-06-07 15:25] VITALS: BP 108/63; PULSE 84; RESP 16; TEMP 36.6; O2SAT 99; BMI 35.3
== END 2024-06-07 16:12 | disposition home or self-care (01) ==
PROVIDERS: PCP Family Medicine; Visit Provider Family Medicine
DX: E78.00 Pure hypercholesterolemia, unspecified (principal); E55.9 Vitamin D deficiency, unspecified; F41.9 Anxiety disorder, unspecified; F32.A Depression, unspecified; R22.1 Localized swelling, mass and lump, neck

== ENCOUNTER → 2024-06-07 14:16 | Outpatient (BNVA) | payer OTHER, SELFPAY | PROVIDERS: PCP Family Medicine; Visit Provider Family Medicine | DX: E78.00 Pure hypercholesterolemia, unspecified (principal); E55.9 Vitamin D deficiency, unspecified; F41.9 Anxiety disorder, unspecified; F32.A Depression, unspecified; R22.1 Localized swelling, mass and lump, neck | CPT/HCPCS: 99212 ==

== ENCOUNTER 2024-06-14 11:17 | Outpatient (REF) | payer OTHER, SELFPAY | END 2024-06-14 11:18 | disposition home or self-care (01) | LOC: HO.HMGCX 11:17 | PROVIDERS: PCP Family Medicine; Visit Provider Family Medicine | DX: R22.1 Localized swelling, mass and lump, neck (principal) | CPT/HCPCS: 76536 ==

== ENCOUNTER 2024-08-24 08:29 | Outpatient (REF) | payer OTHER, SELFPAY ==
[2024-08-24 12:48] LABS: Alanine Aminotransferase 18 U/L (0-31); Alkaline Phosphatase 78 U/L (39-117); Anion Gap 13 (12-20); Aspartate Amino Transferase 23 U/L (5-31); Bilirubin Total 0.3 mg/dL (0.0-1.0); Blood Urea Nitrogen 15 mg/dL (9-16); Calcium 9.9 mg/dL (8.4-10.2); Carbon Dioxide 23 mmol/L (22-29); Chloride 109 mmol/L (96-108); Cholesterol 200 mg/dL (<200); Estimated Glomerular Filt Rate > 60; Glucose Fasting 84 mg/dL (60-99); HDL Cholesterol 45 mg/dL (>40); LDL Cholesterol Calculated 130 mg/dL (<100); Potassium 3.9 mmol/L (3.3-5.1); Sodium 141 mmol/L (135-145); Triglycerides 125 mg/dL (<150)
== END 2024-08-24 08:30 | disposition home or self-care (01) ==
LOC: HO.WFDLDS 08:29
PROVIDERS: Visit Provider Family Medicine
DX: Z00.00 Encounter for general adult medical examination without abnormal findings (principal); E78.00 Pure hypercholesterolemia, unspecified
CPT/HCPCS: 36415; 80053; 80061

== ENCOUNTER 2024-09-07 11:30 | Outpatient (AMB) | payer OTHER, SELFPAY ==
--- NOTE | 2024-09-07 12:14 | A.OFFPC_ITS ---
Vital Signs 09/07/24 12:16 Height 5 ft 5 in Weight 218 lb 4 oz BMI 36.3 BP 110/70 Blood Pressure Location Lt brachial Position Sitting Respiration 14 Pulse 69 Pulse Source Pulse Oximeter Temp 97.9 F Temp Source Oral Pulse Oximetry (%) 99 Oxygen Delivery Method Room Air Intake Visit Reasons: f/u hypercholesterolemia, neck lump Intake Note: lab review and u/s review Allergies No Known Allergies Allergy (Verified 09/07/24 12:15) Tobacco use date assessed: 02/21/24 Dental Screening Dental Screen Date: 08/18/23 HPI f/u hypercholesterolemia, neck lump HPI Details 28 y/o female presents to f/u hyperchole sterolemia, neck lump. Labs drawn 08/24/24. Reviewed labs with pt. Triglycerides 125. TC 200. LDL 130. HDL 45. Head/neck ultrasound 06/14/24 shows: No discrete adenopathy, mass or fluid collection identified in the area of concern indicated by the patient in the right posterior neck inferior to the occipital region. Decisions regarding further imaging, treatment or biopsy should be based on the clinical exam, as not all abnormalities are detectable on ultrasound studies. HPI Comments History of Present Illness Details Documentation assistance for Palmer Yan MD, was provided by Natan Mims, Toddler Caregiver on 09/07/2024 at 12:54 PM EST. I, Dr. Yan, have read, observed, and verified documentation. PFSH Medical History Bleeding hemorrhoids Surgical History History of wisdom tooth extraction Family History Other Substance use disorder Social History Housing: House Alcohol intake: current Alcohol intake frequency: a few times a week Patient Tobacco Use Status: Former Tobacco user (social) e-Cigarette/Vaping Use: Never Used Second Hand Smoke Exposure: Yes service: No Current occupational status: employed Current occupational exposures/hazards: Yes Cognitive needs: No Hearing needs: No Vision needs: No Female Reproductive History Menstrual Age of Menarche: 13 Questionnaire PHQ-9 Over the last 2 weeks, how often have you been bothered by any of the following problems? 1. Little interest or pleasure in doing things: not at all 2. Feeling down, depressed, or hopeless: not at all 3. Trouble falling or staying asleep, or sleeping too much: not at all 4. Feeling tired or having little energy: several days 5. Poor appetite or overeating: not at all 6. Feeling bad about yourself - or that you are a failure or have let yourself or your family down: several days 7. Trouble concentrating on things, such as reading the newspaper or watching television: not at all 8. Moving or speaking so slowly that other people could have noticed. Or the opposite - being so fidgety or restless that you have been moving around a lot more than usual: not at all 9. Thoughts that you would be better off or of hurting yourself in some way: not at all Total score: 2 Source: Developed by Drs. Jules Galvin, Sabi Storm, Lamont Flores and colleagues, with an educational ger from [employer]. Thrive Questionnaire Date Thrive assessed: 05/31/24 I am a: Patient What is your living situation today?: I have a steady place to live Within the past 12 months, did the food you bought not last and you didn't have the money to get more?: Never true Within the past 12 months, did you worry whether your food would run out before you got money to buy more?: Never true Do you have trouble paying for medicines?: No Do you have trouble getting transportation to medical appointments?: No Do you have trouble paying your heating and electricity bill?: No Do you have trouble taking care of your child, family member or friend?: No Do you have trouble with day-to-day activities such as bathing, preparing meals, shopping, managing finances, etc.?: No Are you currently unemployed and looking for a job?: No Are you interested in more education?: No Please select the resources that you would like help with: None Currently or been in a relationship where the following occur: No concerns reported THRIVE Score: 0 AUDIT C Alcohol Use Questionnaire (AUDIT-C) 1. How often do you have a drink containing alcohol?: 2-4 times a month 2. How many drinks containing alcohol do you have on a typical day when you are drinking?: 1 or 2 3. How often do you have six or more drinks on one occasion?: Less than monthly Total Score: 3 SAMUEL-7 AMB Questionnaire SAMUEL-7 Date SAMUEL - 7 assessed: 08/18/23 Feeling nervous, anxious, or on edge: 1 = Several days Not being able to stop or control worryin = Not at all Worrying too much about different things: 1 = Several days Trouble relaxin = Not at all Being so restless that it is hard to sit still: 0 = Not at all Becoming easily annoyed or irritable: 0 = Not at all Feeling afraid as if something awful might happen: 0 = Not at all Total SAMUEL-7 score (0-4 normal; 5-9 mild; 10-14 moderate; 15-21 severe): 2 Source: Developed by Drs. Jules Galvin, Sabi Storm, Lamont Flores and colleagues, with an educational ger from [employer]. Review of Systems Const Denies chills, Denies fatigue, Denies fever(s), Denies headache(s) and Denies weakness ENT Denies dizziness and Denies headache(s) Card Denies dyspnea Resp Denies cough, Denies dyspnea, Denies wheezing and Denies other (shortness of breath) Musc Denies numbness and Denies tingling Neuro Denies dizziness, Denies headache(s), Denies numbness, Denies tingling and Denies weakness Psych Denies anxiety and Denies depression Endo Denies fatigue Aller/Immun Denies wheezing Physical exam (Primary Care) Vital Signs: Last Vital Signs Temp 97.9 F 09/07/24 12:16 Pulse 69 09/07/24 12:16 Resp 14 09/07/24 12:16 BP 110/70 09/07/24 12:16 Pulse Ox 99 09/07/24 12:16 Oxygen Delivery Method Room Air 09/07/24 12:16 BMI result Body Mass Index 36.3 Tobacco/Smoking Status: Tobacco use Status Tobacco use date assessed 02/21/24 09/07/24 12:20 Patient Tobacco Use Status Former Tobacco user (social) 09/07/24 12:20 e-Cigarette/Vaping Use Never Used 09/07/24 12:20 PHQ-9: PHQ-9 Score PHQ-9: Total score 2 09/07/24 12:20 Thrive Assessment: Date of Thrive Assessment Date Thrive assessed 05/31/24 09/07/24 12:20 Currently or been in a relationship where the following occur: No concerns reported Const General: well developed; No acute distress Nutritional Appearance: well nourished Orientation/consciousness: patient oriented x3 HENMT Head: Yes normocephalic and Yes atraumatic Eyes General: appearance normal, both eyes and all related structures Pupils: Equal, round and reactive pupils present EOM: EOMs intact bilaterally Resp Effort & Inspection: normal respiratory effort Neuro General: patient oriented x3 and gait normal Cranial nerves: Yes Equal, round and reactive pupils present Psych Affect: normal affect Coding Level of Care Code Est Pt Level 3 (65142) Diagnoses Hypercholesterolemia E78.00 Lump on neck R22.1 Assessment & Plan Assessment & Plan (1) Hypercholesterolemia: Code(s): E78.00 - Pure hypercholesterolemia, unspecified Category: Medical Plan: LDL?cholesterol?is?too?high. Will?start?atorvastati n?20?mg?daily?she?can?adjust?this?if?she?is?having?any?problems Will?recheck?lipids?in?a?few?months (2) Lump on neck: Code(s): R22.1 - Localized swelling, mass and lump, neck Category: Medical Plan: Ultrasound?not?show?any?abnormalities This?appears?to?be?a?mildly strained?tense?cervical?paraspinous?muscle Encouraged?exercises?and?adjustment?of?workspace She?will?let?me?know?if?there?are?any?changes Orders: Orders Comprehensive [place]. Panel Fast Today E78.00 - Pure hypercholesterolemia, unspecified, Z00.00 - Encounter for general adult medical examination without abnormal findings Lipid Panel Today E78.00 - Pure hypercholesterolemia, unspecified, Z00.00 - Encounter for general adult medical examination without abnormal findings Medications: New atorvastatin 20 mg PO BEDTIME 90 days 90 tabs 2RF
[2024-09-07 12:16] VITALS: BP 110/70; PULSE 69; RESP 14; TEMP 36.6; O2SAT 99; BMI 36.3
== END 2024-09-07 13:00 | disposition home or self-care (01) ==
PROVIDERS: PCP Family Medicine; Visit Provider Family Medicine
DX: E78.00 Pure hypercholesterolemia, unspecified (principal); R22.1 Localized swelling, mass and lump, neck

== ENCOUNTER → 2024-09-07 11:30 | Outpatient (BNVA) | payer OTHER, SELFPAY | PROVIDERS: PCP Family Medicine; Visit Provider Family Medicine | DX: E78.00 Pure hypercholesterolemia, unspecified (principal); E22.1 Hyperprolactinemia | CPT/HCPCS: 99212 ==

== ENCOUNTER 2024-11-26 08:01 | Outpatient (REF) | payer OTHER, SELFPAY ==
[2024-11-26 12:11] LABS: Alanine Aminotransferase 14 U/L (0-31); Albumin Level 3.9 g/dL (3.5-5.0); Alkaline Phosphatase 73 U/L (39-117); Anion Gap 11 (12-20); Aspartate Amino Transferase 21 U/L (5-31); Bilirubin Total 0.3 mg/dL (0.0-1.0); Blood Urea Nitrogen 12 mg/dL (9-16); Calcium 9.2 mg/dL (8.4-10.2); Carbon Dioxide 24 mmol/L (22-29); Chloride 109 mmol/L (96-108); Cholesterol 121 mg/dL (<200); Estimated Glomerular Filt Rate > 60; Glucose Fasting 87 mg/dL (60-99); Potassium 3.9 mmol/L (3.3-5.1); Sodium 140 mmol/L (135-145); Total Protein 7.2 g/dL (6.5-8.0); Triglycerides 104 mg/dL (<150)
[2024-11-26 12:39] LABS: HDL Cholesterol 43 mg/dL (>40); LDL Cholesterol Calculated 58 mg/dL (<100)
== END 2024-11-26 08:02 | disposition home or self-care (01) ==
LOC: HO.WFDLDS 08:01
PROVIDERS: Visit Provider Family Medicine
DX: Z00.00 Encounter for general adult medical examination without abnormal findings (principal); E78.00 Pure hypercholesterolemia, unspecified
CPT/HCPCS: 36415; 80053; 80061

== ENCOUNTER → 2024-12-07 11:31 | Outpatient (BNVA) | payer OTHER, SELFPAY | PROVIDERS: PCP Family Medicine; Visit Provider Family Medicine | DX: E78.00 Pure hypercholesterolemia, unspecified (principal); M79.89 Other specified soft tissue disorders | CPT/HCPCS: 96127 ==

== ENCOUNTER 2025-06-12 08:50 | Outpatient (AMB) | payer OTHER, SELFPAY ==
[2025-06-12 08:58] VITALS: BP 116/76; BMI 36.9
--- NOTE | 2025-06-12 08:58 | MHC.OFFVIS ---
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 Supervisor Required: No Information Interpreted: non-clinical & clinical Real Estate Attorney: Real Estate Attorney Present (Michelle) Accompanied by: Self / Same As Patient Allergies No Known Allergies Allergy (Verified 06/12/25 09:02) Medication List - Last Reconciled 06/12/25 by Maggie Cary LPN atorvastatin 10 mg PO BEDTIME 90 days cholecalciferol (vitamin D3) 25 mcg PO DAILY desog-e.estradiol/e.estradiol 0.15-0.02 mgx21 /0.01 mg x 5 ([place] (28)) 1 tab PO DAILY omega 0-jkc-hrq-fish oil 60-90-500 mg (Fish Oil) 1 cap PO DAILY Is last menstrual period known: Yes Last menstrual period: 05/14/25 Do you need a note to return to daycare/school/sports/work: No HPI 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 She is not really having any health issues or concerns. She is happy enough on the pills and feels that really probably is the best for now for her she did have a Rekha in the past and thought she had more PMS symptoms with it. She is not really sure about future moves so there is some concern about access to control if she ends up moving somewhere else but for now she thinks she will stay on the pills she is a nonsmoker she is doing some gym based high-intensity exercise 3 times a week she is trying to eat really well and added Kale to her diet and that is helping with the constipation issues. She travels a lot for work, having graduated from grad school, and that is challenging sometimes with healthy eating. She has no concerns whatsoever about STDs she is not due for Pap smear and she has no increased concern about any family history vis-a-vis breast cancer or other cancers. [facility] Medical History Bleeding hemorrhoids Surgical History History of wisdom tooth extraction Family History Other Substance use disorder Social History Housing: House Alcohol intake: current Alcohol intake frequency: a few times a week Patient Tobacco Use Status: Former Tobacco user (social) e-Cigarette/Vaping Use: Never Used Second Hand Smoke Exposure: Yes service: No Current occupational status: employed Current occupational exposures/hazards: Yes Cognitive needs: No Hearing needs: No Vision needs: No Female Reproductive History Menstrual Age of Menarche: 13 Date of last menstrual period: 05/14/25 control method: pills Total pregnancies: 0 Number of Living Children: 0 Date of last pap smear: 12/09/22 History of abnormal pap smear: No Physical Exam Vital Signs: Last Vital Signs BP 116/76 06/12/25 08:58 BMI result Body Mass Index 36.9 Const General: healthy appearing, comfortable, no acute distress, well developed and alert Nutritional Appearance: average body habitus Orientation/consciousness: patient oriented x3 Limitations: no limitations HEENT Head: Yes normocephalic Neck Neck: Yes normal visual inspection Chest Chest palpation & inspection: normal inspection of the chest Breast/axilla inspection: normal inspection of the breasts and normal inspection of the axillae Breast/axilla palpation: normal palpation of the breasts and normal palpation of the axillae Resp Effort & Inspection: normal respiratory effort GI Inspection: Yes normal to inspection, No Abdominal wall edema and No distended Palpation (GI): Soft to palpation and nontender Other: External exam within normal limits vagina pink and moist normal appearing healthy mucous, vagina pink and moist nulliparous cervix is pink smooth healthy appearing mobile nontender uterus midposition mobile nontender adnexa nontender good muscle tone. General: Yes bladder normal to palpation External Female Exam: normal external appearance and normal appearance of the urethra Speculum Exam - Vagina: normal appearance of the vagina, normal palpation and normal vaginal discharge Speculum Exam - Cervix: normal appearance of the cervix, normal palpation and nontender Bimanual exam- vagina & uterus: normal bimanual exam, normal palpation, uterine size normal, bladder normal to palpation, consistency normal, normal palpation, uterine mobility normal, uterine shape normal, No Cervical tenderness present, non-tender and no cervical motion tenderness Bimanual Exam- Adnexa, other: normal adnexae, no masses, normal and No adnexal tenderness Neuro General: patient oriented x3 Assessment & Plan Assessment & Plan (1) Screening for malignant neoplasm of cervix: Comment: 12/07/2022 Pap = negative. Code(s): Z12.4 - Encounter for screening for malignant neoplasm of cervix Category: Medical (2) Breast cancer screening: Code(s): Z12.39 - Encounter for other screening for malignant neoplasm of breast Category: Medical (3) control counseling: Code(s): Z30.09 - Encounter for other general counseling and advice on contraception Category: Medical (4) Counseling for control, oral contraceptives: Code(s): Z30.09 - Encounter for other general counseling and advice on contraception Category: Medical (5) Well woman exam with routine gynecological exam: Code(s): Z01.419 - Encounter for gynecological examination (general) (routine) without abnormal findings Category: Medical Plan -----Discussed in this visit the following: healthy balanced diet, regular and consistent exercise, getting recommended health screens, doing the best she can for her particular health concerns, kegel exercises, pap smear screening and followup recommendations, mammography screening and SBE, normal changes in cycles in her life stage--- . Reviewed options for control for now she thinks she is doing well on the pills. Childbearing maybe in the future but she is not sure was she will be living at that point. She is doing well with trying to eat well and exercise. Prescription renewed for another year reviewed the any concerns with the pills and things to watch out for RTC 1 year. Medications: Refilled desog-e.estradiol/e.estradiol 0.15-0.02 mgx21 /0.01 mg x 5 ([place] (28)) 1 tab PO DAILY 84 tabs 4RF desog-e.estradiol/e.estradiol 0.15-0.02 mgx21 /0.01 mg x 5 ([place] (28)) 1 tab PO DAILY 84 tabs 4RF Coding Level of Care Code Est Pt Prev Care 18-39y(60278) Diagnoses Screening for malignant neoplasm of cervix Z12.4 Breast cancer screening Z12.39 control counseling Z30.09 Counseling for control, oral contraceptives Z30.09 Well woman exam with routine gynecological exam Z01.419
== END 2025-06-12 10:49 | disposition home or self-care (01) ==
LOC: HO.HWSM 08:50
PROVIDERS: PCP Family Medicine; Visit Provider Advanced Practice Midwife
DX: Z01.419 Encounter for gynecological examination (general) (routine) without abnormal findings (principal); Z12.4 Encounter for screening for malignant neoplasm of cervix; Z12.39 Encounter for other screening for malignant neoplasm of breast; Z30.09 Encounter for other general counseling and advice on contraception
CPT/HCPCS: 99395; 99459